=== PATIENT | male | born 1945 | race Two or more races ===

== ENCOUNTER 2025-06-14 20:19 | Emergency (ER) | payer OTHER ==
[~2025-06-14] VITALS: Ht 182.9 cm; Wt 100.0 kg
[2025-06-15 00:55] VITALS: BP 150/88; PULSE 91; RESP 17; TEMP 97.6; O2SAT 100
[2025-06-15 01:41] LABS: Urine Protein, UAD 2+ (Negative)
[2025-06-15] MEDS ORDERED: LEVO500T91 PO (02:11)
[2025-06-15] MEDS ORDERED: ACET500T58 PO (02:11)
--- NOTE | 2025-06-15 02:11 | ED.PDOC ---
General HPI Comments This patient is a pleasant 79-year-old male who arrives the ED today for evaluation of urine retention and painful urination concerns off and on for the past month. Patient states approximately six weeks ago he had a prostate procedure that may have been transurethral. Patient states it subsequent to that event, he has had bouts of urine retention as well as pain with urination. Patient denies any fever nausea or vomiting. Vital signs were stable. Chief Complaint: Urinary Time Seen by MD: 21:29 Reviewed notes: Nurses Notes Allergies: Coded Allergies: NO KNOWN ALLERGIES (Unverified , 06/14/25) Information Source: Patient Mode of Arrival: Ambulatory Severity: Moderate Timing: Weeks Duration: Intermittent Prehospital treatment: None Onset: Other (Following prostate procedure) Symptoms: Dysuria Location: Abdomen Penile discharge: None associated signs and symptoms: Dysuria Past Medical History PAST MEDICAL HISTORY: Denies Past Medical History (Other): Prostate concerns Surgical History: Denies all surgeries Surgical History (Other): Recent prostate procedure Family History Family History: Reviewed,noncontributory to illness, No family hx of Cancer, No family hx of DM, No family hx of Heart gabbie, No family hx of HTN, No family hx ofKidney gabbie, No family hx of Liver gabbie, No family hx of Lung gabbie, No family hx of Stroke Social History Smoker: Non-Smoker Alcohol: Denies ETOH Use Drugs: Denies Drug Use Lives In: Home Constitutional: denies: chills, diaphoresis, fatigue, fever, malaise, sweats, weakness, others EENTM: denies: blurred vision, double vision, ear bleeding, ear discharge, ear drainage, ear pain, ear ringing, eye pain, eye redness, hearing loss, mouth pain, mouth swelling, nasal discharge, nose bleeding, nose congestion, nose pain, photophobia, tearing, throat pain, throat swelling, voice changes, others Respiratory: denies: cough, hemoptysis, orthopnea, SOB at rest, shortness of breath, SOB with excertion, stridor, wheezing, others Cardiovascular: denies: chest pain, dizzy spells, diaphoresis, Dyspnea on exertion, edema, irregular heart beat, left arm pain, lightheadedness, palpitations, PND, syncope, others Gastrointestinal: denies: abdomen distended, abdominal pain, blood streaked bowels, constipated, diarrhea, dysphagia, difficulty swallowing, hematemesis, melena, nausea, poor appetite, poor fluid intake, rectal bleeding, rectal pain, vomiting, others Genitourinary: reports: dysuria, others (Urinary retention); denies: burning, flank pain, frequency, hematuria, incontinence, penile discharge, penile sore, pain, testicle pain, testicle swelling, urgency Neurological: denies: dizziness, fainting, headache, left sided numbness, left sided weakness, numbness, paresthesia, pre-existing deficit, right sided numbness, right sided weakness, seizure, speech problems, tingling, tremors, weakness, others Musculoskeletal: denies: back pain, gout, joint pain, joint swelling, muscle pain, muscle stiffness, neck pain, others Integumetry: denies: bruises, change in color, change in hair/nails, dryness, laceration, lesions, lumps, rash, wounds, others Allergic/Immunocompromised: denies: Difficulty Healing, Frequent Infections, Hives, Itching, others Hematologic/Lymphatic: denies: anemia, blood clots, easy bleeding, easy bruising, swollen glands, others Endocrine: denies: excessive hunger, excessive sweating, excessive thirst, excessive urination, flushing, intolerance to cold, intolerance to heat, unexplained weight gain, unexplained weight loss, others Psychiatric: denies: anxiety, bipolar disorder, depression, hopeless, panic disorder, schizophrenia, sleepless, suicidal, others Physical Exam General Appearance: Mild Distress (Patient is in moderate distress at time of evaluation. Patient appears older than his chronology.), Normal HEENT: Normal ENT Inspection, Pharynx Normal, TMs Normal Neck: Full Range of Motion, Non-Tender, Normal, Normal Inspection Respiratory: Chest Non-Tender, Lungs Clear, No Accessory Muscle Use, No Respiratory Distress, Normal Breath Sounds Cardiovascular: No Edema, No JVD, No Murmur, No Gallop, Normal Peripheral Pulses, Regular Rate/Rhythm Breast Exam: Deferred Gastrointestinal: No Organomegaly, Non Tender, No Pulsatile Mass, Normal Bowel Sounds, Soft Genitalia: Deferred Pelvic: Deferred Rectal: Deferred Extremities: No calf tenderness, Normal capillary refill, Normal inspection, Normal range of motion, Non-tender, No pedal edema Neurologic: Alert, No Motor Deficits, Normal Affect, Normal Mood, No Sensory Deficits Cerebellar Function: NOT DONE Reflexes: NOT DONE Skin: Dry, Normal Color, Warm Lymphatic: No Adenopathy Was a procedure done? Was a procedure done?: No Differential Diagnosis Kidney stone (Female): N/A Urinary Problem (Male): Other (BPH, bladder outlet obstruction, urine retention, UTI) X-Ray, Labs, Meds, VS Vital Signs Date Time Temp Pulse Resp B/P (MAP) Pulse Ox O2 Delivery O2 Flow Rate FiO2 06/15/25 00:55 97.6 91 17 150/88 (108) 100 97.6 06/14/25 20:20 97.6 98 18 129/65 96 97.6 Lab Test 06/15/25 00:40 Range/Units Urine Color Light-brown Yellow Urine Clarity Turbid H Clear Urine pH 7.5 5.0-9.0 Urine Specific [place] 1.016 1.001-1.035 Urine Protein 2+ H Negative Urine Ketones Negative Negative Urine Blood 3+ H Negative /uL Urine Nitrite Negative Negative Urine Bilirubin Negative Negative Urine Urobilinogen Normal Negative mg/dL Urine Leukocyte Esterase 3+ Negative /uL Urine RBC 798 0 - 3 /hpf Urine Microscopic WBC 120 H 0-3 /HPF Urine Squamous Epithelial Cells Few <5 /hpf Urine Bacteria Many H None Seen /hpf Urine Glucose Normal Normal mg/dL X-Ray, Labs, Meds, VS Comment All studies performed the ED were evaluated by me personally. Urinalysis confi rmed a substantial urinary tract infection. Patient had a Pineda catheter installed and will take the Pineda catheter home until he follows up with his urologist for discussions related to urine retention as well as postoperative concerns. Time of 1ST Reevaluation: 02:09 Reevaluation 1ST: Improved Consultation: PCP, Urology Patient Education/Counseling: Diagnosis, Treatment Family Education/Counseling: Diagnosis, Treatment SEPSIS Sepsis Screen Date sepsis recognized/suspect: Jun 14, 2025 Time Sepsis recognized/suspect: 2019 Recent Procedure: No On Antibiotic Therapy: No Respiratory Rate >20: No Heart Rate >90: No Temp<36 C (96.8 F) or >38.3 C: No SBP <90 or MAP <65 mmHG: No New Acute Mental Status Change: No Is the patient on CPAP, BIPAP,: No Physician Orders Insert Pineda Catheter QSHIFT (06/14/25 21:54) Vital Signs Date Time Temp Pulse Resp B/P (MAP) Pulse Ox O2 Delivery O2 Flow Rate FiO2 06/15/25 00:55 97.6 91 17 150/88 (108) 100 97.6 06/14/25 20:20 97.6 98 18 129/65 96 97.6 Departure 1 Departure Time of Disposition: 02:09 Impression: Primary Impression: BPH (benign prostatic hyperplasia) Additional Impressions: Urine retention UTI (urinary tract infection) Disposition: HOME / SELF CARE / HOMELESS Condition: Stable Additional Instructions: Advise utilizing the antibiotics as directed until completion as well as follow up with the urologist for discussions related to urine retention issues and urinary tract concerns. e-Prescriptions Acetaminophen (Acetaminophen) 500 Mg Tab 500 MG PO Q4HP PRN, #30 TAB Prov: ARANZA SILVERIO PAC 06/15/25 Levofloxacin Hemihydrate (LEVAQUIN 500 MG) 500 Mg Tab 1 TAB PO DAILY for 10 Days, #10 TAB Prov: ARANZA SILVERIO PAC 06/15/25 Discharged With: Self, Friend Critical Care Note Critical Care Time?: No Stability Stability form required: No Heart Score Heart Score: Heart Score Response (Comments) Value History N/A 0 EKG N/A 0 Age N/A 0 Risk Factors N/A 0 Troponin N/A 0 Total 0 ARANZA SILVERIO PAC Jun 15, 2025 02:11
[2025-06-15] MEDS: levoFLOXacin 250 MG TAB PO ONE (02:27)
== END 2025-06-15 02:23 | disposition home or self-care (01) ==
LOC: ER 20:19
DX: N40.1 Benign prostatic hyperplasia with lower urinary tract symptoms (principal); R33.9 Retention of urine, unspecified; N39.0 Urinary tract infection, site not specified
CPT/HCPCS: 51702; 81001

== ENCOUNTER 2025-06-25 11:24 | Emergency (ER) | payer OTHER, MEDICARE ==
[~2025-06-25] VITALS: Ht 182.9 cm; Wt 99.3 kg
[~2025-06-25 11:24] MED LIST: ACET500T58 PO; LEVO500T91 PO
--- NOTE | 2025-06-25 12:46 | ED.PDOC ---
General HPI Comments 79 year old male presents to the ED with a chief complaint of urinary catheter removal onset today (06/25/25). Patient was seen in this ED on 06/15/25 for urinary retention, catheter was placed, was advised to follow up with Urologist. He came to ED today for removal. PMHx HTN. Denies dysuria, hematuria, abdominal pain, fever, chills, nausea, vomiting, diarrhea, headache, dizziness. No other symptoms or modifying factors present at this time. Chief Complaint: Urinary Time Seen by MD: 12:40 Reviewed notes: Medications, Allergies Allergies: Coded Allergies: NO KNOWN ALLERGIES (Unverified , 06/14/25) Home Meds Active Scripts Acetaminophen (Acetaminophen) 500 Mg Tab, 500 MG PO Q4HP PRN, #30 TAB Prov:ARANZA SILVERIO PAC 06/15/25 Levofloxacin Hemihydrate (LEVAQUIN 500 MG) 500 Mg Tab, 1 TAB PO DAILY for 10 Days, #10 TAB Prov:ARANZA SILVERIO PAC 06/15/25 Information Source: Patient Mode of Arrival: Ambulatory Severity: Moderate Timing: Hours Duration: Since onset Prehospital treatment: None Onset: Spontaneous Symptoms: Other History of: Other Past Medical History PAST MEDICAL HISTORY: HTN Surgical History: Denies all surgeries Family History Family History: Reviewed,noncontributory to illness, No family hx of Cancer, No family hx of DM, No family hx of Heart gabbie, No family hx of HTN, No family hx ofKidney gabbie, No family hx of Liver gabbie, No family hx of Lung gabbie, No family hx of Stroke Social History Smoker: Non-Smoker Alcohol: Denies ETOH Use Drugs: Denies Drug Use Lives In: Home Constitutional: denies: chills, diaphoresis, fatigue, fever, malaise, sweats, weakness, others EENTM: denies: blurred vision, double vision, ear bleeding, ear discharge, ear drainage, ear pain, ear ringing, eye pain, eye redness, hearing loss, mouth pain, mouth swelling, nasal discharge, nose bleeding, nose congestion, nose pain, photophobia, tearing, throat pain, throat swelling, voice changes, others Respiratory: denies: cough, hemoptysis, orthopnea, SOB at rest, shortness of breath, SOB with excertion, stridor, wheezing, others Cardiovascular: denies: chest pain, dizzy spells, diaphoresis, Dyspnea on exertion, edema, irregular heart beat, left arm pain, lightheadedness, palpitations, PND, syncope, others Gastrointestinal: denies: abdomen distended, abdominal pain, blood streaked bowels, constipated, diarrhea, dysphagia, difficulty swallowing, hematemesis, melena, nausea, poor appetite, poor fluid intake, rectal bleeding, rectal pain, vomiting, others Genitourinary: reports: others (harris catheter in place); denies: burning, dysuria, flank pain, frequency, hematuria, incontinence, penile discharge, penile sore, pain, testicle pain, testicle swelling, urgency Neurological: denies: dizziness, fainting, headache, left sided numbness, left sided weakness, numbness, paresthesia, pre-existing deficit, right sided numbness, right sided weakness, seizure, speech problems, tingling, tremors, weakness, others Musculoskeletal: denies: back pain, gout, joint pain, joint swelling, muscle pain, muscle stiffness, neck pain, others Integumetry: denies: bruises, change in color, change in hair/nails, dryness, laceration, lesions, lumps, rash, wounds, others Allergic/Immunocompromised: denies: Difficulty Healing, Frequent Infections, Hives, Itching, others Hematologic/Lymphatic: denies: anemia, blood clots, easy bleeding, easy bruising, swollen glands, others Endocrine: denies: excessive hunger, excessive sweating, excessive thirst, excessive urination, flushing, intolerance to cold, intolerance to heat, unexplained weight gain, unexplained weight loss, others Psychiatric: denies: anxiety, bipolar disorder, depression, hopeless, panic disorder, schizophrenia, sleepless, suicidal, others All Other Systems: Reviewed and Negative Physical Exam General Appearance: Moderate Distress, Normal HEENT: Normal ENT Inspection, Pharynx Normal, TMs Normal Neck: Full Range of Motion, Non-Tender, Normal, Normal Inspection Respiratory: Chest Non-Tender, Lungs Clear, No Accessory Muscle Use, No Respiratory Distress, Normal Breath Sounds Cardiovascular: No Edema, No JVD, No Murmur, No Gallop, Normal Peripheral Pulses, Regular Rate/Rhythm Breast Exam: Deferred Gastrointestinal: No Organomegaly, Non Tender, No Pulsatile Mass, Normal Bowel Sounds, Soft Genitalia: Deferred Pelvic: Deferred Rectal: Deferred Extremities: No calf tenderness, Normal capillary refill, Normal inspection, Normal range of motion, Non-tender, No pedal edema Musculoskeletal : Apperance: Normal Neurologic: Alert, 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 Was a procedure done?: No Differential Diagnosis Kidney stone (Female): Musculoskeletal pain, Urinary obstruction, Urolithiasis X-Ray, Labs, Meds, VS Vital Signs Date Time Temp Pulse Resp B/P (MAP) Pulse Ox O2 Delivery O2 Flow Rate FiO2 06/25/25 17:11 Room Air* 0 21 06/25/25 15:50 97.6 72 18 138/66 (90) 99 97.6 06/25/25 11:28 98.2 99 16 133/66 99 98.2 Lab Test 06/25/25 15:56 Range/Units Urine Color Light-brown Yellow Urine Clarity Turbid H Clear Urine pH 6.5 5.0-9.0 Urine Specific [place] 1.016 1.001-1.035 Urine Protein 2+ H Negative Urine Ketones Negative Negative Urine Blood 3+ H Negative /uL Urine Nitrite Negative Negative Urine Bilirubin Negative Negative Urine Urobilinogen Normal Negative mg/dL Urine Leukocyte Esterase 3+ Negative /uL Urine RBC 2116 0 - 3 /hpf Urine Microscopic WBC 134 H 0-3 /HPF Urine Squamous Epithelial Cells None seen <5 /hpf Urine Bacteria None seen None Seen /hpf Urine Mucus Few None Seen Urine Yeast (Budding) Moderate None Seen /hpf Urine Glucose Normal Normal mg/dL Current Medications Medications (Trade) Dose Ordered Sig/Jamie Route Start Time Stop Time Status Last Admin Sodium Chloride 1,000 ml @ 1,000 mls/hr Q1H ONCE IV 06/25/25 16:45 06/25/25 17:44 06/25/25 17:05 Ceftriaxone Sodium 50 ml @ 100 mls/hr ONCE ONCE IV 06/25/25 16:45 06/25/25 17:14 DC 06/25/25 17:05 Patient alert. States that he has a urinary catheter in place. Placed five days ago at [facility]. Vitals stable. Denies shortness a breath. Denies chest pain. Denies any symptoms. UA shows infection. Sepsis due to urinary tract infection. Establish intravenous access. Was given fluids. Was given Rocephin. Explained to the patient. Continue monitoring. Time of 1ST Reevaluation: 13:10 Reevaluation 1ST: Unchanged Patient Education/Counseling: Diagnosis, Treatment, Prognosis Family Education/Counseling: No Family Present SEPSIS Sepsis Screen Date sepsis recognized/suspect: Jun 25, 2025 Time Sepsis recognized/suspect: 1128 Recent Procedure: No On Antibiotic Therapy: No Respiratory Rate >20: No Heart Rate >90: Yes Temp<36 C (96.8 F) or >38.3 C: No SBP <90 or MAP <65 mmHG: No New Acute Mental Status Change: No Is the patient on CPAP, BIPAP,: No Physician Orders Troponin-I Hs (06/25/25 16:41) Complete Blood Count (06/25/25 16:41) Basic Metabolic Panel (06/25/25 16:41) Sodium Chloride 0.9% (06/25/25 16:45) Vital Signs Date Time Temp Pulse Resp B/P (MAP) Pulse Ox O2 Delivery O2 Flow Rate FiO2 06/25/25 17:11 Room Air* 0 21 06/25/25 15:50 97.6 72 18 138/66 (90) 99 97.6 06/25/25 11:28 98.2 99 16 133/66 99 98.2 Medications Medications Dose Ordered Sig/Jamie Route Start Time Stop Time Status Last Admin Dose Admin Ceftriaxone Sodium 50 ml @ 100 mls/hr ONCE ONCE IV 06/25/25 16:45 06/25/25 17:14 DC 06/25/25 17:05 Sodium Chloride 1,000 ml @ 1,000 mls/hr Q1H ONCE IV 06/25/25 16:45 06/25/25 17:44 06/25/25 17:05 Departure 1 Departure Time of Disposition: 14:05 Impression: Primary Impression: Sepsis due to urinary tract infection Additional Impression: BPH (benign prostatic hyperplasia) Qualified Codes: N40.0 - Benign prostatic hyperplasia without lower urinary tract symptoms Disposition: ADMITTED INPATIENT Admit to: Med Surg Condition: Guarded Critical Care Note Critical Care Time?: No Stability Stability form required: No Heart Score Heart Score: Heart Score Response (Comments) Value History N/A 0 EKG N/A 0 Age N/A 0 Risk Factors N/A 0 Troponin N/A 0 Total 0 I personally scribed for LENNIE BRADY MD ([email or web address]) on 06/25/25 at 12:46. Electronically submitted by Nancy Smyth ([email or web address]). LENNIE BRADY MD Jun 25, 2025 12:46
[2025-06-25 15:50] VITALS: BP 138/66; PULSE 72; RESP 18; TEMP 97.6; O2SAT 99
[2025-06-25 16:23] LABS: Urine Budding Yeast MODERATE /hpf (None Seen); Urine Protein, UAD 2+ (Negative)
[2025-06-25] MEDS: SODIUM CHLORIDE 0.9% 1,000 ML IV ONE (17:05)
[2025-06-25 18:52] LABS: Chloride 106 mmol/L (98-107); Potassium 4.1 mmol/L (3.5-5.1); Sodium 144 mmol/L (136-145)
[2025-06-25 18:54] LABS: Calcium 9.0 mg/dL (8.7-10.4)
[2025-06-25 18:58] LABS: Glucose 80 mg/dL (74-106)
[2025-06-25 19:00] LABS: BUN/Creatinine Ratio 13.4 (10.0-20.0); Blood Urea Nitrogen 11 mg/dL (9-23)
[2025-06-25 19:08] LABS: Anion Gap 12 (5-15); Carbon Dioxide 26 mmol/L (20-31)
[2025-06-25] MEDS ORDERED: ACETAMINOPHEN 325 MG TAB PO PRN (19:30)
[2025-06-25] MEDS ORDERED: ONDANSETRON HCL 4 MG/2 ML VIAL IV PRN (19:30)
[2025-06-25 20:10] LABS: Hematocrit 41.5 % (41.0-53.0); Hemoglobin 15.3 g/dL (13.5-17.5); Nucleated Red Blood Cells % 0.1 %
[2025-06-25 20:11] LABS: Mean Corpuscular Hemoglobin 37.3 pg (28.0-32.0); Mean Corpuscular Volume 101.4 fL (80.0-100.0)
== END 2025-06-25 21:31 | disposition left against medical advice (07) ==
LOC: ER 11:24 → OVERFLOW 19:21 → UNDOADMIN 19:21 → UNDODISIN 21:31 → ER 21:31
DX: A41.9 Sepsis, unspecified organism (principal); N39.0 Urinary tract infection, site not specified; N40.1 Benign prostatic hyperplasia with lower urinary tract symptoms; Z79.899 Other long term (current) drug therapy
CPT/HCPCS: 36415; 80048; 81001; 84484; 96365; 99284; J0696; J7030; G0378